=== PATIENT | male | born 1980 | race Caucasian/White ===

== ENCOUNTER 2016-11-25 13:11 | Emergency (ER) | payer SELFPAY ==
[2016-11-25] MEDS ORDERED: Lorazepam 2 MG/ML VIAL ONE ×2 (13:21→14:04)
[2016-11-25 13:28] LABS: #Basophils 0.1 thou/uL (0.0-0.2); #Lymphocytes 1.7 thou/uL (1.20-3.40); #Monocytes 0.3 thou/uL (0.11-0.59); %Basophils 1.3 % (0.0-1.0); %Eosinophils 0.5 % (0.0-10.0); %Monocytes 3.9 % (0.0-10.0); Mean Platelet Volume 6.6 fL (7.4-10.4); Red Blood Cell (RBC) Count 4.95 mill/uL (4.70-6.10); White Blood Cell (WBC) Count 8.2 thou/uL (4.8-10.8)
[2016-11-25 13:38] LABS: PTT 25.6 SEC (22.9-36.1)
[2016-11-25 13:39] LABS: Prothrombin Time 13.7 SEC (12.0-14.7)
[2016-11-25 13:41] LABS: ALT (SGPT) 35 U/L (0-55); AST (SGOT) 29 U/L (5-34); Alkaline Phosphatase 90 U/L (40-150); Anion Gap 17 mmol/L (10-20); BUN (Urea Nitrogen) 8 mg/dL (8.9-20.6); Bilirubin, Total 1.3 mg/dL (0.2-1.2); Calc. Creatinine Clearance 0 mL/min (70-130); Calcium 9.4 mg/dL (7.8-10.44); Carbon Dioxide 22 mmol/L (22-29); Chloride 104 mmol/L (98-107); Estimated GFR-MDRD 89; Globulin 3.6 g/dL (2.4-3.5); Protein, Total 8.4 g/dL (6.0-8.3)
--- NOTE | 2016-11-25 13:42 | RAD ---
SINGLE VIEW OF CHEST: Date: 11/25/16 COMPARISON: None. HISTORY: Chest pain that started this morning around 5:00. Tingling in body and shortness of breath. FINDINGS: Single view of the chest shows a normal sized cardiomediastinal silhouette. There is no evidence of consolidation, mass, or pleural effusion. The bones are unremarkable. IMPRESSION: No evidence of acute cardiopulmonary disease. POS: [id number]
[2016-11-25 13:43] LABS: Troponin I Less than 0.010 ng/mL (< 0.028)
[2016-11-25 13:46] LABS: Methadone Not Detected (NotDetected); Methamphetamine Detected (NotDetected)
[2016-11-25] MEDS ORDERED: Ondansetron HCl/PF 4 MG/2 ML Vial ONE (13:47)
[2016-11-25] MEDS ORDERED: Potassium Chloride 20 MEQ TAB ONE (15:08)
== END 2016-11-25 15:18 | disposition home or self-care (01) ==
LOC: BURERS 13:11
DX: F41.9 Anxiety disorder, unspecified (principal); E87.6 Hypokalemia; F15.10 Other stimulant abuse, uncomplicated; F10.10 Alcohol abuse, uncomplicated
CPT/HCPCS: 71010; 80053; 80306; 80307; 82553; 83880; 84443; 84484; 85025; 85379; 85610; 85730; 93005; 94760; 96374; 96375; J2060; J2405